=== PATIENT | male | born 1940 | race Caucasian/White ===

== ENCOUNTER → 2017-03-09 | Outpatient (CLI) | payer MEDICARE, OTHER ==
[~2017-03-09] MED LIST: AMLO10 PO; ASPI81 PO; GLUCTAB PO; PROT40TA PO; TAB-TAB PO
[2017-03-09 11:08] LABS: CHLORIDE 105 MEQ/L (98-107); POTASSIUM 4.5 MEQ/L (3.5-5.1); SODIUM (NA) 143 MEQ/L (136-145)
[2017-03-09 11:12] LABS: ANION GAP 6 MEQ/L (5-15); BICARBONATE 32.5 MEQ/L (21.0-32.0); BLOOD UREA NITROGEN 17 MG/DL (7-18); GLUCOSE,FASTING 111 MG/DL (74-99)
[2017-03-09 11:15] LABS: ALT (GPT) 178 U/L (12-78); AST (GOT) 118 U/L (15-37); GLOMERULAR FILTRATION RATE 58 ML/MIN (>89)
[2017-03-09 11:16] LABS: TOTAL BILIRUBIN ADULT 1.3 MG/DL (0.2-1.0)
[2017-03-09 11:18] LABS: ALKALINE PHOSPHATASE 80 U/L (45-117)
[2017-03-09 18:44] LABS: HEMOGLOBIN A1b 1.8 %; HEMOGLOBIN Ao 84.7 %; HEMOGLOBIN LA1C 1.9 %; HEMOGLOBIN P3 3.9 %
== END ==
LOC: PLAB 08:29
DX: E11.65 Type 2 diabetes mellitus with hyperglycemia (principal); E89.0 Postprocedural hypothyroidism
CPT/HCPCS: 36415; 80053; 83036

== ENCOUNTER → 2017-05-11 | Outpatient (CLI) | payer MEDICARE, OTHER ==
[2017-05-11 10:10] LABS: BICARBONATE 32.4 MEQ/L (21.0-32.0); GLUCOSE,FASTING 129 MG/DL (74-99)
[2017-05-11 10:16] LABS: ANION GAP 5 MEQ/L (5-15); CHLORIDE 104 MEQ/L (98-107); POTASSIUM 3.8 MEQ/L (3.5-5.1); SODIUM (NA) 141 MEQ/L (136-145)
[2017-05-11 10:17] LABS: AST (GOT) 54 U/L (15-37); GLOMERULAR FILTRATION RATE 65 ML/MIN (>89)
[2017-05-11 10:18] LABS: BLOOD UREA NITROGEN 19 MG/DL (7-18); TOTAL BILIRUBIN ADULT 1.2 MG/DL (0.2-1.0)
[2017-05-11 10:20] LABS: ALKALINE PHOSPHATASE 66 U/L (45-117); ALT (GPT) 78 U/L (12-78)
== END ==
LOC: PLAB 08:37
DX: E11.65 Type 2 diabetes mellitus with hyperglycemia (principal)
CPT/HCPCS: 36415; 80053